=== PATIENT | male | born 1975 | race Caucasian/White ===

== ENCOUNTER → 2018-12-31 | Outpatient (CLI) | payer OTHER ==
--- NOTE | 2018-12-31 16:27 | PCVCIMAG ---
APPROVED REPORT Study performed: 12/31/2018 12:49:25 EXAM: Comprehensive 2D, Doppler, and color-flow Echocardiogram Patient Location: Echo lab Status: routine BSA: 2.20 HR: 73 bpmBP: 108/74 mmHg Rhythm: NSR Other Information Study Quality: Good Risk Factors: Cardiac Risk Factors: Hyperlipidemia Indications Family Hx CAD 2D Dimensions IVSd: 10.46 (7-11mm)LVOT Diam: 20.00 (18-24mm) LVDd: 45.48 mm PWd: 10.02 (7-11mm)Ascending Ao: 32.22 (22-36mm) LVDs: 32.26 (25-40mm) Left Atrium: 37.77 (27-40mm) Aortic Root: 30.59 mm LV Single Plane 4CH: 61.55 % LV Single Plane 2CH: 63.75 % Biplane EF: 63.9 % Volumes Left Atrial Volume (Systole) Single Plane 4CH: 57.46 mLSingle Plane 2CH: 36.51 mL LA ESV Index: 22.00 mL/m2 Aortic Valve AoV Peak Austin.: 1.23 m/s AO Peak Gr.: 6.09 mmHgLVOT Max P.89 mmHg LVOT Max V: 0.99 m/s ADELIA Vmax: 2.49 cm2 Mitral Valve E/A Ratio: 1.1 MV Decel. Time: 325.63 ms MV E Max Austin.: 0.63 m/s MV A Austin.: 0.59 m/s IVRT: 72.66 ms TDI E/Lateral E': 4.20E/Medial E': 6.30 Medial E' Austin.: 0.10 m/s Lateral E' Austin.: 0.15 m/s Pulmonary Valve PV Peak Austin.: 1.00 m/sPV Peak Gr.: 3.99 mmHg Pulmonary Vein P Vein S: 0.66 m/sP Vein A: 0.31 m/s P Vein D: 0.48 m/sP Vein A Dur.: 110.7 msec P Vein S/D Ratio: 1.38 Tricuspid Valve TR Peak Austin.: 2.19 m/sRAP Estimate: 7.00 mmHg TR Peak Gr.: 19.12 mmHg PA Pressure: 26.00 mmHg Left Ventricle The left ventricle is normal size. There is normal LV segmental wall motion. There is normal left ventricular wall thickness. Left ventricular systolic function is normal. The left ventricular ejection fraction is within the normal range. LVEF is 60-65%. The left ventricular diastolic function is normal. Right Ventricle The right ventricle is normal size. The right ventricular systolic function is normal. Atria The left atrium size is normal. The right atrium size is normal. Aortic Valve The aortic valve is normal in structure. No aortic regurgitation is present. There is no aortic valvular stenosis. Mitral Valve The mitral valve is normal in structure. There is no mitral valve regurgitation noted. No evidence of mitral valve stenosis. Tricuspid Valve The tricuspid valve is normal in structure. Trace tricuspid regurgitation. Pulmonary artery pressure is 25 mmHg. Pulmonic Valve The pulmonary valve is normal in structure. There is no pulmonic valvular regurgitation. Great Vessels The aortic root is normal in size. The ascending aorta is normal in size. IVC is normal in size and collapses >50% with inspiration. Pericardium There is no pericardial effusion. <Conclusion> 1. Normal echocardiogram with Doppler. Ejection fraction 60-65%. 2. Structural valvular disease was absent. There are no significant regurgitant or stenotic lesions. 3. Pulmonary artery pressure of approximately 25 mmHg. 4. No pericardial effusion.
--- NOTE | 2018-12-31 16:29 | PCVCIMAG ---
APPROVED REPORT Patient Location: Echo lab-Treadmill Stress Test Room #: Stress Nurse: Lorelei Day RN INDICATION: Family Hx CAD, Hyperlipidemia The patient exercised according to the GOMEZ for 12:55 min:s, achieving a work level of Max METS : 16.80. The resting heart rate of 71 bpm ousmane to a maximal heart rate of 187 bpm. This value represents 106% of the maximal, age-predicted heart rate. The resting blood pressure of 108/74 mmHg jo to a maximal blood pressure of 170/64 mmHg. The exercise was stopped due to maximal effort. Resting EKG: Normal sinus rhythm normal tracing Stress EKG: No significant dysrhythmias. No ST segment shifts diagnostic of myocardial ischemia. Conclusion 1. Maximal treadmill exercise study negative for exercise-induced ischemia. 2. No subjective signs of ischemia such as chest pain or anginal-like symptoms and no significant dysrhythmias. 3. The study was associated with good exercise capacity (16.1 METS). Low Mac treadmill exercise score
== END | disposition home or self-care (01) ==
LOC: PCVCIMAG 13:00
PROVIDERS: ATTEND Internal Medicine
DX: R93.1 Abnormal findings on diagnostic imaging of heart and coronary circulation (principal); E78.5 Hyperlipidemia, unspecified; Z82.49 Family history of ischemic heart disease and other diseases of the circulatory system; Z88.5 Allergy status to narcotic agent
CPT/HCPCS: 93017; 93306